=== PATIENT | female | born 1980 | race Hispanic/Latino ===

== ENCOUNTER 2016-10-19 02:55 | Observation (INO) | payer BC ==
[2016-10-19 03:07] VITALS: BMI 21.6
[2016-10-19] MEDS ORDERED: Sodium Chloride 0.9% 1,000 ML IV STA ×2 (03:08→03:55)
[2016-10-19 03:09] VITALS: BP 106/53; PULSE 88; RESP 18; TEMP 98.9; O2SAT 100
[2016-10-19 03:21] LABS: ALBUMIN 4.5 g/dL (3.5-5.0); BASO # 0.1 K/uL (0.0-0.2); BASO % 0.4 % (0.0-2.0); EOS # 0.1 K/uL (0.0-0.7); EOS % 0.8 % (0.0-4.0); HEMOGLOBIN 13.4 g/dL (12.0-16.0); LYMPH # 2.5 K/uL (1.0-4.3); LYMPH % 16.4 % (20.0-40.0); MEAN CELL VOLUME 90.9 fl (81.0-99.0); MEAN CORPUSCULAR HEMOGLOBIN 30.7 pg (27.0-31.0); MEAN CORPUSCULAR HGB CONC 33.8 g/dL (33.0-37.0); MEAN PLATELET VOLUME 7.4 fl (7.2-11.7); MONO # 0.8 K/uL (0.0-0.8); MONO % 5.1 % (0.0-10.0); NEUT # 11.9 K/uL (1.8-7.0); NEUT % 77.3 % (50.0-75.0); NRBC % 0.1 % (0.0-0.0); RBC 4.36 Mil/uL (3.80-5.20); RED CELL DISTRIBUTION WIDTH 13.2 % (11.5-14.5); WHITE BLOOD COUNT 15.4 K/uL (4.8-10.8)
[2016-10-19 03:23] LABS: GFR AFRICAN-AMERICAN > 60; GFR NON-AFRICAN AMERICAN > 60
[2016-10-19 03:24] LABS: ALB/GLOB RATIO 1.3 (1.0-2.1); ALT/SGPT 23 U/L (9-52); AST/SGOT 36 U/L (14-36); BLOOD UREA NITROGEN 12 mg/dl (7-17); CALCIUM 9.7 mg/dL (8.4-10.2); LIPASE 61 U/L (23-300)
[2016-10-19] MEDS ORDERED: Iohexol 240 (50 ml) PO ONE (03:39)
[2016-10-19] MEDS ORDERED: Iohexol 240 (50 ml) ONE (03:44)
--- NOTE | 2016-10-19 04:09 | ED PDOC ---
HPI:Nausea, Vomiting, Diarrhea Time Seen by Provider: 10/19/16 02:59 Chief Complaint (Nursing): Abdominal Pain Chief Complaint (Provider): Nausea, Vomiting and Abdominal Pain History Per: Patient, Family () History/Exam Limitations: no limitations Current Symptoms Are (Timing): Still Present Additional Complaint(s): Lorena Valencia, a 36 year old female who is status post appendectomy presents to the ED with nausea, vomiting and abdominal pain which started in the middle of the night. As per , he and the patient were at a hospital account [employer] even for the past few days and overexerted themselves. The patient reports that the pain started on her right side of her abdomen followed by non bloody, non bilious food colored vomit. Patient admits to drinking alcohol. Past Medical History Reviewed: Historical Data, Nursing Documentation, Vital Signs Vital Signs: Last Vital Signs Temp 98.9 F 10/19/16 03:05 Pulse 88 10/19/16 03:05 Resp 18 10/19/16 03:05 BP 106/53 L 10/19/16 03:05 Pulse Ox 100 10/19/16 03:05 - Medical History PMH: Back Problems - Surgical History Surgical History: Appendectomy - Family History Family History: States: Unknown Family Hx - Home Medications Home Medications: Ambulatory Orders Medication Instructions Recorded Acetaminophen/Hydrocodone Bi 1 tab PO QID PRN 3 Days 10/19/16 [Vicodin 300 mg-5 mg] Ciprofloxacin [Cipro] 500 mg PO BID 7 Days 10/19/16 Ibuprofen [Motrin Tab] 600 mg PO Q6 #30 tab 10/19/16 Ondansetron [Zofran] 4 mg PO Q8H #12 tab 10/19/16 - Allergies Allergies/Adverse Reactions: Allergies Allergy/AdvReac Type Severity Reaction Status Date / Time No Known Allergies Allergy Verified 10/19/16 03:05 Review of Systems Gastrointestinal: Positive for: Nausea, Vomiting (non bloody, non bilious food colored vomit), Abdominal Pain (Right sided abdominal pain) Physical Exam - Reviewed Nursing Documentation Reviewed: Yes Vital Signs Reviewed: Yes - Physical Exam Appears: Positive for: Non-toxic, No Acute Distress Head Exam: Positive for: ATRAUMATIC, NORMAL INSPECTION, NORMOCEPHALIC Skin: Positive for: Normal Color, Warm, Dry Eye Exam: Positive for: Normal appearance, EOMI, PERRL ENT: Positive for: Normal ENT Inspection Neck: Positive for: Normal, Painless ROM, Supple Cardiovascular/Chest: Positive for: Regular Rate, Rhythm, Chest Non Tender. Negative for: Tachycardia Respiratory: Positive for: Normal Breath Sounds. Negative for: Wheezing, Respiratory Distress Gastrointestinal/Abdominal: Positive for: Soft, Tenderness (Right upper and righte mid quadrant tenderness to palpation.), Other (Patient is actively vomiting.) Neurologic/Psych: Positive for: Alert, Oriented, Gait - Laboratory Results Result Diagrams: 10/19/16 03:13 10/19/16 03:13 - ECG O2 Sat by Pulse Oximetry: 100 (RA) Pulse Ox Interpretation: Normal Medical Decision Making Medical Decision Makin Initial Impression: Small Bowel Obstruction vs Kidney Stone vs Other intraabdominal problems initial Plan: * CT ABD&PELV PO & IV Contrast * Alcohol Serum, Serum * Comp Metabolic Panel * Lactic Acid, Lipase * Upreg, Udip, CBC * Morphine 2mg IVP * NS 1000mls iIV 1000mls/hr * Omnipaque 50ml PO * Toradol 30mg IVP * Zofran inj 4mg IVP * Reevaluation 630AM: IMPRESSION: - Small to moderate amount of pelvic and abdominal free fluid, more than expected on a physiologic basis, greatest in the right pelvis. There is an involuting lesion in the right adnexa, and the findings could be secondary to a recently ruptured right adnexal lesion , such as a ruptured corpus luteal or hemorrhagic cyst. Pelvic ultrasound may be helpful for further evaluation. - Small 2.5 x 1.4 cm pocket of fluid in the appendectomy bed. This does not have features suggestive of an abscess, and it could represent a chronic seroma, resolving hematoma, or lymphocele. Recommend clinical correlation. - Wall thickening involving the distal stomach and multiple small bowel loops, which could be secondary to gastroenteritis. Recommend clinical correlation. - Incidental indeterminate liver lesion. See above. - See above for remaining findings. Pt. feeling better, still having some pain but significantly improved. No longer vomiting. Results given to patient including copy of CT report. Told to f/u w/ Dr. Burgess and have repeat CT/MRI as needed on non emergent basis. Will prescribe cipro but told patient to wait 1-2 days to take it and not take it if patient improving. Told to f/u w/ PMD in 2-3 days or return to ER for worsening or concerning symptoms. [place] [employer] database searched, no recent controlled substnace prescriptions. Discussed narcotic prescription with patient and potential for addiction, alternatives discussed. Pt aware of risks. Will d/c home. Scribe Attestation Documented by Rosmery Flores acting as a scribe for Joao Morrell MD. Provider Attestation All medical record entries made by the Scribe were at my direction and personally dictated by me. I have reviewed the chart and agree that the record accurately reflects my personal performance of the history, physical exam, medical decision making, and the department course for this patient. I have also personally directed, reviewed, and agree with the discharge instructions and disposition. Disposition - Clinical Impression Clinical Impression: Ruptured ovarian cyst, Gastroenteritis - Disposition Referrals: Kim Burgess MD [Primary Care Provider] - Disposition: Routine/Home Disposition Time: 06:35 Condition: STABLE Prescriptions: Acetaminophen/Hydrocodone Bi [Vicodin 300 mg-5 mg] 1 tab PO QID PRN 3 Days PRN Reason: Pain, Severe (8-10) Ciprofloxacin [Cipro] 500 mg PO BID 7 Days Ibuprofen [Motrin Tab] 600 mg PO Q6 #30 tab Ondansetron [Zofran] 4 mg PO Q8H #12 tab Instructions: Gastroenteritis (ED), Ovarian Cyst (ED), Narcotic Pain Management (ED)
[2016-10-19] MEDS ORDERED: Morphine 4 MG/ML VIAL IVP STA (04:50)
[2016-10-19] MEDS ORDERED: Sodium Chloride 0.9% 50 ML IV ONE (05:29)
[2016-10-19] MEDS ORDERED: Iohexol 300 100 ML IJ ONE (05:29)
[2016-10-19 06:11] LABS: VENOUS BLOOD GAS BASE EXCESS -0.8 mmol/L (0.0-2.0); VENOUS BLOOD GAS PCO2 44 mmHg (40-60); VENOUS BLOOD GAS PO2 19 mm/Hg (30-55); VENOUS BLOOD PH 7.36 (7.32-7.43)
--- NOTE | 2016-10-19 09:58 | CT ---
PROCEDURE: CT Abdomen and Pelvis with contrast HISTORY: R sided abd pain, n/v, s/p appendectomy COMPARISON: None. TECHNIQUE: Contrast dose: 90 mL Omnipaque 300 Radiation dose: Total exam DLP = 442.17 mGy-cm. This CT exam was performed using one or more of the following dose reduction techniques: Automated exposure control, adjustment of the mA and/or kV according to patient size, and/or use of iterative reconstruction technique. FINDINGS: LOWER THORAX: Unremarkable. LIVER: Normal size, contour and attenuation. 4.3 cm rounded low-attenuation lesion in the inferior right hepatic lobe, nonspecific. Possible cyst. 2.1 cm rounded heterogeneous low-attenuation mass in the right hepatic lobe, nonspecific. Possible hemangioma. No other mass. No biliary dilatation. Smooth contour. GALLBLADDER AND BILE DUCTS: Unremarkable. PANCREAS: Unremarkable. No gross lesion or ductal dilatation. SPLEEN: Unremarkable. ADRENALS: Unremarkable. No mass. KIDNEYS AND URETERS: Unremarkable. No hydronephrosis. No solid mass. VASCULATURE: Unremarkable. No aortic aneurysm. BOWEL: Mild thickening of the gastric antrum, circumferentially common nonspecific. Possible antritis. Circumferential mural thickening of loops of proximal jejunum, nonspecific. Consistent with enteritis. This may be infectious or inflammatory no other abnormal bowel loops. No bowel obstruction. APPENDIX: Status post appendectomy. PERITONEUM: There is free fluid in the pelvis. There is fluid in both pericolic gutters, right greater than left. Streaky increased attenuation of the perivesical fat noted particularly on series 3, images 145 through 149. Minimal thickening of the bladder wall. Possible cystitis. Please correlate with urinalysis. The finding is nonspecific. LYMPH NODES: No retroperitoneal or pelvic lymphadenopathy. Numerous shotty subcentimeter lymph nodes in the small bowel mesenteric common nonspecific. Consistent with mesenteric adenitis. This may be related to a reported gastroenteritis. See above. BLADDER: Mild mural thickening. Streaky increased attenuation of perivesical fat. Lab cystitis. Please correlate with urinalysis. REPRODUCTIVE: Normal uterus and adnexae. No pelvic mass. BONES: No acute fracture. OTHER FINDINGS: None IMPRESSION: Free fluid in pelvis and right pericolic gutter and to a lesser extent left pericolic gutter. Nonspecific. Status post appendectomy. Mild thickening of bladder wall with stranding of perivesical fat common nonspecific. Though this may be related to the generalized ascites, the possibility of a cystitis must also be considered and correlation with urinalysis is requested. Mild mural thickening of the gastric antrum and loops of proximal jejunum, possible nonspecific gastroenteritis. Nonspecific mesenteric adenitis. No other significant abnormality. Minor findings as above. Preliminary interpretation of this examination was reported by [facility] at 6:17 a.m. on 10/19/2016. There is concurrence of this report with the preliminary interpretation.
== END 2016-10-19 07:04 | disposition home or self-care (01) ==
LOC: H.ER 02:55 → H.EROBSV 03:41
PROVIDERS: ADMIT Emergency Medicine; ATTEND Emergency Medicine
DX: N83.209 Unspecified ovarian cyst, unspecified side (principal); K52.9 Noninfective gastroenteritis and colitis, unspecified; Z90.49 Acquired absence of other specified parts of digestive tract
CPT/HCPCS: 74177; 80053; 82803; 83605; 83690; 84702; 85025; 96374; 96375; 96376; 99282; G0378; G0480; J1885; J2270; J2405; J7040; Q9966; Q9967